=== PATIENT | male | born 1960 | race Caucasian/White ===

== ENCOUNTER 2016-05-02 19:15 | Emergency (ER) | payer OTHER ==
[~2016-05-02] VITALS: Ht 195.6 cm; Wt 156.8 kg
[~2016-05-02 19:15] MED LIST: ASPI-628 PO; ATOR40TA69 PO; GLPZ5T PO; INDO50CA PO; LOPRESSOR PO; LOSA50TA37 PO; METF10002 PO; NAPR220C11 PO; OMEP-113 PO; SILD100T PO
[2016-05-02 19:33] VITALS: BP 155/82; PULSE 76; RESP 16; O2SAT 95
--- NOTE | 2016-05-02 20:24 | ED.REPORT ---
HPI-General Illness Date of Service May 02, 2016 ED Provider: Chucky Benson MD A 55 year old male with a medical history including diabetes mellitus and hypertension presents to the ED with hyperglycemia (419) onset just prior to arrival. The patient also reports fatigue. He denies fever, diaphoresis, nausea , vomiting, increased urination, chills, or other symptoms. The patient was previously on Metformin (1000mg twice daily) and glyburide but his glyburide was replaced with Actos 1.5 weeks ago. The dose of this medication was increased three days ago. Two days ago the patient was also placed on an antibiotic for a dental infection which began three months ago. Nursing Notes Stated Complaint: HIGH BLOOD SUGAR Chief Complaint: General Complaint Nursing Notes Reviewed: Yes (Open[employer] not reconciled) Allergies: Coded Allergies: simvastatin (Unverified Allergy, Severe, RASH, 05/02/16) Scheduled ([Lopressor]) 100 MG PO BID Aspirin (Aspir 81) 81 Mg Tablet. 81 MG PO DAILY Atorvastatin Calcium (Atorvastatin Calcium) 40 Mg Tablet 40 MG PO DAILY Glipizide (Glipizide) 5 Mg Tablet 5-10 MG PO BID Losartan Potassium (Losartan Potassium) 50 Mg Tablet 50 MG PO DAILY Metformin (Metformin) 1,000 Mg Tablet 2,000 MG PO DAILYWM Naproxen Sodium (Aleve) 220 Mg Capsule 220 MG PO BID PRN Omeprazole Magnesium (Omeprazole) 20 Mg Capsule.dr 20 MG PO PM Scheduled PRN Indomethacin (Indomethacin) 50 Mg Capsule 50 MG PO TID PRN PRN PRN Sildenafil Citrate (Viagra) 100 Mg Tablet 100 MG PO UD PRN PRN ED General Time Seen by MD: 20:21 Chief Complaint Other (Hyperglycemia) Hx Obtained From: Patient Arrived By: Walk-in Sudden in Onset?: No Onset Occurred: Just prior to arrival Symptom Duration: Since onset Severity: Current: No pain currently Severity: Maximum: No pain Associated with: Denies: Fever Pertinent Negative: Relieved by nothing Context Related History: Reports Diabetes mellitus Recent Healthcare: Recent doctor visit Past Medical History Past Medical History Hypertension GERD Diverticulitis Colon polyps and hemorrhoids Diabetes mellitus Past Surgical History Tonsillectomy Adenectomy Bilateral inguinal hernia repair Smoking History Unknown if Ever Smoker Social History Alcohol Use: Denies alcohol use Ambulatory Status Independent Review of Systems + Hyperglycemia (419) Full Review of Systems Constitutional: Reports: Fatigue, Denies: Chills, Fever Respiratory: Denies: Non-productive cough, Shortness of breath GI: Denies: Nausea, Vomiting Male: Denies Urination increased Skin: Denies Diaphoresis Complete sys rev & neg: except as marked. Physical Exam Vital Signs Vital Signs Date Time Temp Pulse Resp B/P Pulse Ox O2 Delivery O2 Flow Rate FiO2 05/02/16 19:33 37.2 76 16 155/82 95 Room Air Initial VS: Reviewed, Vital signs normal Head / Eyes: Atraumatic, Normocephalic ENT: Conjunctiva normal, No scleral icterus Neck: Supple, Full range of motion Respiratory: Breath sounds normal, Clear to auscultation, No respiratory distress Cardiovascular: Regular rate & rhythm, Heart sounds normal Abdomen / GI: Soft, Non-tender Skin: Warm, Dry, No cyanosis Neurologic: Alert, Oriented, Nonfocal Psychiatric: Mood/affect normal, Behavior normal, Normal thought content General/Constitutional: Awake, Alert Interpretation & Diagnostics Lab Results Interpretation Result Diagram: 05/02/16203405/02/162034 Test 05/02/16 20:35 White Blood Count 8.1th/mm3 (3.8-10.1) Red Blood Count 4.51mil/mm3 (4.40-5.80) Hemoglobin 14.7g/dL (13.8-17.2) Hematocrit 43.0% (41.0-50.0) Mean Corpuscular Volume 95.3fL (81-100) Mean Corpuscular Hemoglobin 32.6pg (27.0-35.0) Mean Corpuscular Hemoglobin Concent 34.2% (32.0-37.0) Red Cell Distribution Width 11.5% (12.3-15.4) Platelet Count 189bil/L (150-400) Neutrophils (%) (Auto) 53.2% (40-74) Lymphocytes (%) (Auto) 30.8% (14-46) Monocytes (%) (Auto) 9.4% (4-12) Eosinophils (%) (Auto) 5.6% (0-5) Basophils (%) (Auto) 0.9% (0-3) Sodium Level 135mEq/L (134-144) Potassium Level 4.4mEq/L (3.5-5.2) Chloride Level 96mEq/L (97-108) Carbon Dioxide Level 22mmol/L (18-29) Blood Urea Nitrogen 9mg/dL (6-24) Creatinine 0.78mg/dL (0.76-1.27) Estimat Glomerular Filtration Rate 109mL/min (>59) Glucose Level 373mg/dL (60-99) Calcium Level 9.9mg/dL (8.5-10.1) Total Bilirubin 0.4mg/dL (0.0-1.2) Aspartate Amino Transf (AST/SGOT) 26U/L (0-50) Alanine Aminotransferase (ALT/SGPT) 52U/L (0-44) Alkaline Phosphatase 134U/L (25-150) Total Protein 7.9g/dL (6.4-8.4) Albumin 4.4g/dL (3.4-5.0) Hold Khan Top Tube Received (Received) Lab Results Interpretation: CBC normal CMP mild hyperglycemia-no electrolyte or renal abnormality Re-Eval/Medical Decision Med Decision/Clinical Course This is a 55-year-old male who presents with elevated blood sugars. The patient is a type II diabetic and has been on metformin and glyburide, but noticed some increased blood sugar since was recently switched from glyburide to Actos about a week ago. He started off at 15 mg daily, but over the past 3 days then increase to 30 mg she still had high blood sugars. He has been recently started on an antibiotic for a dental infection-but has not had fevers or chills. He has had fatigue and notices blood sugar around 400 and became concerned so came to the ED. He does not have any other specific symptoms. He has not noted polyuria, polyphagia, visual symptoms, he has no chest pain, and fever, or other complaints. The patient clinically appears well and is in no marked abnormality on physical exam. Blood work reveals normal electrolytes and renal function, and moderate hyperglycemia. Pharmacy was consult for assistance in understanding of zeb could not remember to Actos, his new medications-and a research indicates that this medication can take couple weeks to have a full affect metabolism. Therefore, I would not recommend aggressive changes to his in regimen at present. He has no evidence of severe dehydration-intact we hydrated with several liters in the department to help make sure, no other findings complication-and he just increased his dose 3 days ago. He has got an appointment already on Thursday for follow-up with his PCP, and I recommended a simple continue his current regimen and as long as he is not having any symptoms cannot pay too much attention to his sugars over the next several days in the short-term. Return precautions, routine precautions were both reviewed. Patient is discharged in good condition Source of Hx: Old records Time of Eval: 23:15 Patient Status: Condition improved Re-Evaluation/Progress Note: Discussed with patient lab results, diagnosis, and plan for discharge. Follow-up and return to the ER instructions given. Patient agrees with plan for care and all questions were addressed. Differential Diagnosis: Positive: Diabetes mellitus, Negative: Abdominal pain, Acute coronary syndrome, Allergies, Bronchitis, acute, Cellulitis, Neutropenia, Pharyngitis, acute Counseled Regarding: Diagnosis, Lab results, Need for follow-up, When/why to return to ED Discharge & Departure Primary Impression: Hyperglycemia Disposition: Home Discharge Condition All VS Reviewed: Yes Condition: Improved Additional Instructions: 1. Your blood tests today were normal except for the blood sugar- You had no electrolyte or kidney abnormalities. 2. I have reviewed your new medication (Actos) with the pharmacist - They indicate that this can take some time-sometimes a week or 2-sometimes 3 weeks before he starts to take effect. We do not expect a dramatic change in the sugar initially. Before the next step is to allow some more time for the new medication-and particularly the increased dose to really take effect. 3. As long as you are not having symptoms, he do not need to worry about sugars under 4-500 over the next week. (This is not true long-term, but is true while we are waiting for the medication to take better effect) 4. If you develops symptoms-if you feel dehydrated, he developed a fever, or some other concerning symptoms, you do need to be rechecked. 5. It is also true that your recent dental infection may be contributing slightly to the elevated sugar-so go ahead and continue and complete the antibiotics as that may help as well. 6. Keep your appointment on Thursday with your doctor. 7. Happy birthday Referrals: Roxanna Hurley MD (PCP) Scribe Attestation Portions of this note were transcribed by Cindy Pereira. I, Dr. Benson, personally performed the history, physical exam, and medical decision-making; I reviewed and confirmed the accuracy of the information in the transcribed note. Signed by: Claribel Lauren, 05/02/2016, 23:45 copies to: Roxanna Hurley MD, Matthew F MD May 02, 2016 20:24 CINDY PEREIRA May 02, 2016 20:51
[2016-05-02] MEDS ORDERED: 0.9% Sodium Chloride 1,000 ML IV ONE ×2 (20:25)
[2016-05-02 20:56] LABS: BASOPHILS % (AUTO) 0.9 % (0-3); EOSINOPHILS % (AUTO) 5.6 % (0-5); MONOCYTES % (AUTO) 9.4 % (4-12); Mean Corpuscular Hemoglobin 32.6 pg (27.0-35.0); Mean Corpuscular Volume 95.3 fL (81-100); NEUTROPHILS % (AUTO) 53.2 % (40-74); Platelet Count 189 bil/L (150-400)
== END 2016-05-03 00:17 | disposition home or self-care (01) ==
LOC: SED 19:15
DX: E11.65 Type 2 diabetes mellitus with hyperglycemia (principal); I10 Essential (primary) hypertension; K21.9 Gastro-esophageal reflux disease without esophagitis; Z79.82 Long term (current) use of aspirin; Z79.84 Long term (current) use of oral hypoglycemic drugs; Z88.8 Allergy status to other drugs, medicaments and biological substances
CPT/HCPCS: 36415; 80053; 82948; 85025; 96360; 96361; 99284; J7030